=== PATIENT | male | born 1980 | race Caucasian/White ===

== ENCOUNTER 2019-03-07 18:56 | Emergency (ER) | payer BC ==
[2019-03-07 19:14] VITALS: RESP 20
--- NOTE | 2019-03-07 20:31 | ED ---
General Adult HPI - General Chief complaint: Skin/Abscess/Foreign Body Stated complaint: Rt knee swelling Time Seen by Provider: 03/07/19 19:21 Source: patient, family, RN notes reviewed, old records reviewed Mode of arrival: ambulatory Limitations: no limitations - History of Present Illness Initial comments: 38-year-old male patient with no pertinent past medical history presents to ED for redness and swelling of his right lower extremity. Patient reports that [place] one week [place]. Patient reports that afterwards he developed some redness in his right knee and swelling. She reports that the redness has spread up and down his right lower extremity. Patient states that he does not have any significant pain. Patient's been ambulatory without difficulty. Patient states that the swelling in his right knee has greatly improved. Patient reports that he received evaluation via [facility] and they recommended him to present to ER to rule out a DVT. Patient denies any chest pain or shortness of breath. Patient denies any fevers or chills. Patient denies any other complaints at this time. Systemic: Pt denies fatigue, myalgia, fever/chills, rash. Pt denies weakness, night sweats, weight loss. Neuro: Pt denies headache, visual disturbances, syncope or pre-syncope. HEENT: Pt denies ocular discharge or irritation, otalgia, rhinorrhea, pharyngitis or notable lymphadenopathy. Cardiopulmonary: Pt denies chest pain, SOB, heart palpitations, dyspnea on exertion. Abdominal/GI: Pt denies abdominal pain, n/v/d. : Pt denies dysuria, burning w/ urination, frequency/urgency. Denies new onset urinary or bowel incontinence. MSK: Pt denies myalgia, loss of strength or function in extremities. Neuro: Pt denies new onset weakness, paresthesias. - Related Data Allergies Allergy/AdvReac Type Severity Reaction Status Date / Time Penicillins Allergy Swelling Verified 03/07/19 19:14 Review of Systems ROS Statement: Those systems with pertinent positive or pertinent negative responses have been documented in the HPI. ROS Other: All systems not noted in ROS Statement are negative. Past Medical History Past Medical History: No Reported History History of Any Multi-Drug Resistant Organisms: None Reported Past Surgical History: No Surgical Hx Reported Past Psychological History: No Psychological Hx Reported Smoking Status: Never smoker Past Alcohol Use History: Occasional Past Drug Use History: None Reported General Exam - General Exam Comments Initial Comments: Constitutional: NAD, AOX3, Pt has pleasant affect. HEENT: NC/AT, trachea midline, neck supple, no lymphadenopathy. Posterior pharynx non erythematous, without exudates. External ears appear normal, without discharge. Mucous membranes moist. Eyes PERRLA, EOM intact. There is no scleral icterus. No pallor noted. Cardiopulmonary: RRR, no murmurs, rubs or gallops, no JVD noted. Lungs CTAB in anterior and posterior rodriguez. No peripheral edema. Abdominal exam: Abdomen soft and non-distended. Abdomen non-tender to palpation in all 4 quadrants. Bowel sounds active in LLQ. No hepatosplenomegaly. No ecchymosis Neuro: CN II-XII grossly intact. No nuchal rigidity. MSK: Right knee mildly erythematous. Erythema extending to proximal right thigh and mid tibia/fibula. Mildly warm to touch. Full active range of motion of the knee. Patient able to bear weight without difficulty. No posterior calf tenderness bilaterally, homans sign negative bilaterally. Posterior tibialis and radial pulse +2 bilaterally. Sensation intact in upper and lower extremities. Full active ROM in upper and lower extremities, 5/5 stregnth. Limitations: no limitations Course Vital Signs 03/07/19 19:11 Temperature 99.1 F Pulse Rate 73 Respiratory 20 Rate Blood Pressure 143/82 O2 Sat by Pulse 100 Oximetry Disposition Clinical Impression: Erythema of lower extremity Disposition: HOME SELF-CARE Condition: Stable Instructions (If sedation given, give patient instructions): Acute Rash (ED) Additional Instructions: Patient to adhere to previously discussed treatment plan. Patient to follow up with PCP in 1-2 days. Patient to return to ED if symptoms do not improve. Closely monitor symptoms. Return me to see if condition worsens. Is patient prescribed a controlled substance at d/c from ED?: No Referrals: Jorje Hutchinson MD [Primary Care Provider] - 1-2 days
--- NOTE | 2019-03-07 20:39 | XR ---
Right knee HISTORY: Pain and swelling 3 views of the right knee There is mild spurring, subchondral sclerosis and joint space loss in the medial compartment. No frac ture or dislocation. Alignment is maintained. No sizable joint effusion. IMPRESSION: Some mild osteoarthritis is suspected. Knee MRI may be of benefit.
--- NOTE | 2019-03-07 20:41 | US ---
EXAMINATION TYPE: US venous doppler duplex LE RT DATE OF EXAM: 03/07/2019 8:35 PM COMPARISON: NONE CLINICAL HISTORY: Pain. Pt states right leg redness and swelling x 2 days SIDE PERFORMED: Right TECHNIQUE: The lower extremity deep venous system is examined utilizing real time linear array sonog talib with graded compression, doppler sonography and color-flow sonography. VESSELS IMAGED: External Iliac Vein (EIV) Common Femoral Vein Deep Femoral Vein Greater Saphenous Vein * Femoral Vein Popliteal Vein Small Saphenous Vein * Proximal Calf Veins (* superficial vessels) There is normal flow, compressibility, vascular waveforms. Right Leg: Negative for DVT IMPRESSION: No evident deep venous thrombosis at or above the right knee. Follow-up as indicated.
[2019-03-07 21:36] VITALS: BP 134/83; PULSE 96; TEMP 98.3
== END 2019-03-07 21:38 | disposition home or self-care (01) ==
LOC: EC 18:56
DX: L53.9 Erythematous condition, unspecified (principal); Z88.0 Allergy status to penicillin
CPT/HCPCS: 99284

== ENCOUNTER 2022-12-28 08:29 | Emergency (ER) | payer BC ==
--- NOTE | 2022-12-28 09:18 | ED ---
Male Urogenital HPI - General Chief complaint: Abdominal Pain Stated complaint: Groin Pain Time Seen by Provider: 12/28/22 08:55 Source: patient, RN notes reviewed Mode of arrival: ambulatory Limitations: no limitations - History of Present Illness Initial comments: This is a 42-year-old male who presents to the emergency department for groin pain. A couple of days ago while on vacation in [place], he was jumping a fence and landed on his groin. He has since had swelling and bruising to the left groin and testicle. Pain has started to improve and it is now just uncomfortable, however the testicle is still very swollen and bruised. Denies any blood in his urine or burning with urination. Also denies any nausea or vomiting. Denies any fevers, chills, sore throat, cough, dyspnea, chest pain, palpitations, abdominal pain, nausea, vomiting, diarrhea, back pain, or headaches. MD Complaint: testicle swelling, genital injury Location: left testicle, left inguinal region - Related Data Allergies Allergy/AdvReac Type Severity Reaction Status Date / Time Penicillins Allergy Swelling Verified 12/28/22 08:46 Review of Systems ROS Statement: Those systems with pertinent positive or pertinent negative responses have been documented in the HPI. ROS Other: All systems not noted in ROS Statement are negative. Past Medical History Past Medical History: No Reported History History of Any Multi-Drug Resistant Organisms: None Reported Past Surgical History: No Surgical Hx Reported Past Psychological History: No Psychological Hx Reported Smoking Status: Never smoker Past Alcohol Use History: Occasional Past Drug Use History: None Reported General Exam Limitations: no limitations General appearance: alert, in no apparent distress Head exam: Present: atraumatic, normocephalic, normal inspection Respiratory exam: Present: normal lung sounds bilaterally. Absent: respiratory distress, wheezes, rales, rhonchi, stridor Cardiovascular Exam: Present: regular rate, normal rhythm, normal heart sounds. Absent: systolic murmur, diastolic murmur, rubs, gallop, clicks GI/Abdominal exam: Present: soft, normal bowel sounds. Absent: distended, tenderness, guarding, rebound, rigid exam: Present: other (Ecchymosis and swelling to the left testicle with palpable hematoma posterior to it.) Neurological exam: Present: alert, oriented X3, CN II-XII intact Psychiatric exam: Present: normal affect, normal mood Skin exam: Present: warm, dry, intact, normal color. Absent: rash Course Vital Signs 12/28/22 12/28/22 08:44 10:52 Temperature 98.5 F 98 F Pulse Rate 80 76 Respiratory 18 16 Rate Blood Pressure 140/77 135/76 O2 Sat by Pulse 99 99 Oximetry Medical Decision Making - Medical Decision Making This is a 42-year-old male who presents to the emergency department for a testicular injury. Was pt. sent in by a medical professional or institution? @ -No Did you speak to anyone other than the patient for history? @ -No Did you review nursing and triage notes? @ -Yes, and I agree, it is accurate with regards to the patient's symptoms. Were old charts reviewed? @ -No Differential Diagnosis? @ -Differential Testicular Injury: Testicular rupture, testicular torsion, contusion, this is not meant to be an all-inclusive list. What testing was considered but not performed? (CT, X-rays, U/S, labs)? Why? @ -None What meds were considered but not given? Why? @ -None Did you discuss the management of the patient with other professionals? @ -No Did you reconcile home meds? @ -No Was smoking cessation discussed for >3mins.? @ -No Was critical care preformed (if so, how long)? @ -No Were there social determinants of health that impacted care today? How? (Homelessness, low income, unemployed, alcoholism, drug addiction, transportation, low edu. Level, literacy, decrease access to med. care, skilled nursing, rehab)? @ -No Was there de-escalation of care discussed even if they declined? (Discuss DNR or withdrawal of care, Hospice)? @ -No What co-morbidities impacted this encounter? (DM, HTN, Smoking, COPD, CAD, Cancer, CVA, Hep., AIDS, mental health diagnosis, sleep apnea, morbid obesity)? @ -None Was patient admitted / discharged? @ -Discharged. Urinalysis negative for signs of blood or infection. Scrotal ultrasound obtained revealing no evidence of testicular rupture. Findings suggestive of soft tissue swelling and perineal hematoma. Findings reviewed with the patient. He is advised to take anti-inflammatories such as ibuprofen, apply ice, and elevate the scrotum. Information for urology follow-up provided in the event symptoms do not improve. Undiagnosed new problem with uncertain prognosis? @ -None Drug Therapy requiring intensive monitoring for toxicity (Heparin, Nitro, Insulin, Cardizem)? @ -None Were any procedures done? @ -None Diagnosis/symptom? @ -Testicular injury Acute, or Chronic, or Acute on Chronic? @ -Acute Uncomplicated (without systemic symptoms) or Complicated (systemic symptoms)? @ -Uncomplicated Side effects of treatment? @ -None Exacerbation, Progression, or Severe Exacerbation] @ -Not applicable Poses a threat to life or bodily function? @ -No Return precautions reviewed in depth, the patient is instructed to return to the emergency department with any new, worsening, or concerning symptoms. Patient v erbalized understanding. This case was discussed in detail with the attending ED physician, Dr. Fernández. Presentation, findings, and treatment plan discussed in detail as well. - Lab Data Lab Results 12/28/22 Range/Units 10:08 Urine Color Yellow Urine Appearance Clear (Clear) Urine pH 6.0 (5.0-8.0) Ur Specific [place] 1.030 (1.001-1.035) Urine Protein Trace H (Negative) Urine Glucose (UA) Negative (Negative) Urine Ketones Negative (Negative) Urine Blood Negative (Negative) Urine Nitrite Negative (Negative) Urine Bilirubin Negative (Negative) Urine Urobilinogen 4.0 (<2.0) mg/dL Ur Leukocyte Esterase Negative (Negative) - Radiology Data Radiology results: report reviewed, image reviewed Disposition Clinical Impression: Testicular injury Disposition: HOME SELF-CARE Instructions (If sedation given, give patient instructions): Testicle Pain (ED) Additional Instructions: Return to the emergency department with any new, worsening, or concerning symptoms. Take ibuprofen or another [id number] anti-inflammatory to help with the swelling and inflammation. Continue to apply ice and elevate the scrotum. Contact urology as listed below for a follow-up appointment. Follow up with your primary care provider in 1-2 days. Is patient prescribed a controlled substance at d/c from ED?: No Referrals: Jorje Hutchinson MD [Primary Care Provider] - 1-2 days Sam Lama MD [STAFF PHYSICIAN] - 1-2 days
--- NOTE | 2022-12-28 10:03 | US ---
EXAMINATION TYPE: US scrotum with doppler. TECHNIQUE: Grayscale and color Doppler Duplex imaging performed of the scrotum. DATE OF EXAM: 12/28/2022 COMPARISON: NONE 42-year-old male CLINICAL HISTORY: Testicular trauma. Patient states climbing over fence and fell on this testicle. S welling and bruising left teste. No significant pain at this time. Patient states feeling something under his left testicle. FINDINGS: EXAM MEASUREMENTS: TESTICLES: Right Testicle: 3.6 x 4.0 x 3.1 cm Left Testicle: 4.2 x 3.5 x 1.9 cm EPIDIDYMIS HEAD: Right Epididymis: 0.9 x 1.1 x 0.9 cm Left Epididymis: 1.0 x 1.0 x 0.9 cm Doppler performed to assess for testicular vascularity; good bilateral color flow and waveforms are s een. There is no evidence of testicular torsion. Presence of hydroceles: Small right Presence of varicoceles: Left lateral Echogenic heterogenous area seen posterior left testicle approximately = 5.6 x 1.9 cm. Scrotal skin e josue seen. IMPRESSION: No discrete testicular injury identified. However, there is generalized scrotal edema, small right hy drocele, and a 5.6 x 1.9 cm heterogeneous area posterior to the left testicle that seems to be along the perineum that could represent a soft tissue hematoma. Correlate for a corresponding palpable abno rmality.
[2022-12-28 10:21] LABS: Appearance,Urine Clear (Clear); Bilirubin,Urine Negative (Negative); Blood,Urine Negative (Negative); Color,Urine Yellow; Glucose,Urine (UA) Negative (Negative); Ketones,Urine Negative (Negative); Leukocyte Esterase,Urine Negative (Negative); Nitrite,Urine Negative (Negative); Protein,Urine Trace (Negative)
[2022-12-28 10:54] VITALS: BP 135/76; PULSE 76; RESP 16; TEMP 98
== END 2022-12-28 10:54 | disposition home or self-care (01) ==
LOC: EC 08:29
DX: S30.22XA Contusion of scrotum and testes, initial encounter (principal); Z88.0 Allergy status to penicillin; Y30.XXXA Falling, jumping or pushed from a high place, undetermined intent, initial encounter
CPT/HCPCS: 76870; 81003; 93975; 99284